=== PATIENT | male | born 1980 | race Caucasian/White ===

== ENCOUNTER 2023-08-11 13:25 | Emergency (ER) | payer BC ==
[~2023-08-11] VITALS: Ht 188 cm; Wt 97.7 kg
[~2023-08-11 13:25] MED LIST: MOTRIN 800800 MG/TAB PO; MUSCLE RELAXER
[2023-08-11 13:27] VITALS: TEMP 97.4
[2023-08-11] MEDS ORDERED: NS 1,000 ML IV ONE (13:45)
[2023-08-11] MEDS ORDERED: Ondansetron 4 MG/2 ML VIAL IV ONE (13:45)
[2023-08-11] MEDS ORDERED: LORazepam 2 MG/ML 1 ML VIAL IV ONE (14:00)
[2023-08-11] MEDS ORDERED: ANTIVERT 12.512.5 MG PO (14:45)
[2023-08-11] MEDS ORDERED: Meclizine 25 MG TAB PO ONE ×2 (14:45→16:30)
[2023-08-11] MEDS ORDERED: ZOFRAN ODT4 MG PO (14:45)
[2023-08-11] MEDS ORDERED: droPERidol 2.5 MG/ML 2 ML VIAL IV ONE (15:30)
[2023-08-11 17:12] VITALS: BP 131/70; PULSE 69
== END 2023-08-11 17:12 | disposition home or self-care (01) ==
LOC: COL.ER 13:25
DX: R42 Dizziness and giddiness (principal); R11.2 Nausea with vomiting, unspecified
CPT/HCPCS: J1790; J2060; J2405; J7030